=== PATIENT | female | born 1965 | race Native Hawaiian/Other Pacific Islander ===

== ENCOUNTER 2016-11-18 09:01 | Outpatient (CLI) | payer BC ==
[~2016-11-18 09:01] MED LIST: CEPACOL SORE TH1 LOZ MT; CIPRO500 MG PO; HYDRTAB76 PO; METO50TA27 PO; Z-PAK PO
== END 2016-11-18 19:14 | disposition home or self-care (01) ==
LOC: MRI 09:01
DX: M25.571 Pain in right ankle and joints of right foot (principal); M72.2 Plantar fascial fibromatosis

== ENCOUNTER 2019-06-21 10:10 | Outpatient (CLI) | payer BC | END 2019-06-21 20:16 | disposition home or self-care (01) | LOC: LABW 10:10 | DX: R77.8 Other specified abnormalities of plasma proteins (principal); R80.8 Other proteinuria | CPT/HCPCS: 36415; 83883; 84155; 86335 ==

== ENCOUNTER 2022-04-01 00:02 | Emergency (ER) | payer BC ==
[~2022-04-01] VITALS: Ht 160 cm; Wt 104.3 kg
[2022-04-01 00:10] VITALS: TEMP 98.4
[2022-04-01 00:53] LABS: PLATELET COUNT 327 K/uL (152-353)
[2022-04-01 03:11] LABS: PLATELET COUNT 283 K/uL (152-353)
[2022-04-01 04:31] VITALS: BP 149/67
== END 2022-04-01 04:55 | disposition home or self-care (01) ==
LOC: ED 00:02
PROVIDERS: Emergency Medicine Emergency Medical Services
PROC: 2Y41X5Z Packing of Nasal Region using Packing Material (ICD-10-PCS; principal; 2022-04-01)
DX: R04.0 Epistaxis (principal)
CPT/HCPCS: 36415; 85027; 96360; 96374; 96375; 96376; 99284; J2270; J2405

== ENCOUNTER 2022-04-07 07:16 | Outpatient (CLI) | payer BC ==
[2022-04-07 07:38] LABS: PLATELET COUNT 327 K/uL (152-353)
[2022-04-07 08:02] LABS: POTASSIUM 4.1 mmol/L (3.6-5.2)
== END 2022-04-07 19:28 | disposition home or self-care (01) ==
LOC: LABW 07:16
PROVIDERS: ATTEND Internal Medicine
DX: R79.89 Other specified abnormal findings of blood chemistry (principal); E78.00 Pure hypercholesterolemia, unspecified; I10 Essential (primary) hypertension; R04.0 Epistaxis
CPT/HCPCS: 36415; 80053; 80061; 84439; 84443; 85027

== ENCOUNTER 2023-02-26 11:59 | Outpatient (CLI) | payer BC | END 2023-02-26 22:29 | disposition home or self-care (01) | LOC: CT 11:59 | PROVIDERS: ATTEND Internal Medicine | DX: R31.9 Hematuria, unspecified (principal) ==